=== PATIENT | male | born 1970 ===

== ENCOUNTER 2022-06-25 12:30 | Inpatient (IN) ==
[~2022-06-25 12:30] MED LIST: ACETAMINOPHEN 325 MG TABLET PO PRN; HEPARIN/NACL 0.9% 2 UNITS/ML 1,000 UNIT/500 ML BAG IV ONE; HEPARIN/NACL 0.9% 2 UNITS/ML 2,000 UNIT/1,000 ML BAG IV ONE; LACTULOSE 20 GM/30 ML UDCUP PO PRN; MAGNESIUM SULF RIDER 2 GM/50 ML PREMIX IV PRN; MAGNESIUM SULF RIDER 4 GM/100 ML PREMIX IV PRN; ONDANSETRON 4 MG/2 ML VIAL IV PRN; diphenhydrAMINE CAP 25 MG CAPSULE PO PRN
[2022-06-25] MEDS ORDERED: fentaNYL 100 MCG/2 ML VIAL ONE (12:32)
[2022-06-25] MEDS ORDERED: HEPARIN 5,000 UNIT/1 ML VIAL ONE (12:32)
[2022-06-25] MEDS ORDERED: MIDAZOLAM 2 MG/2 ML VIAL ONE (12:32)
[2022-06-25] MEDS ORDERED: TICAGRELOR 90 MG TABLET ONE (12:36)
[2022-06-25] MEDS ORDERED: DEXTROSE 10% 250 ML BAG IV PRN (12:41)
[2022-06-25] MEDS ORDERED: GLUCAGON 1 MG VIAL IM PRN (12:41)
[2022-06-25] MEDS ORDERED: NITROGLYCERIN DRIP 50 MG/250 ML BOTTLE IV ONE (12:45)
[2022-06-25] MEDS: SODIUM CHLORIDE 0.9% 1,000 ML IV SCH ×2 (13:45→21:03)
[2022-06-25 13:56] LABS: Basophils % 0.2 % (0.0-0.8); Eosinophils # 0.1 10*3/uL (0.0-0.87); Eosinophils % 0.6 % (0.00-10.9); Hematocrit 47.4 VOL% (42.0-52.0); Hemoglobin 16.4 GM/DL (14.0-18.0); Immature Granulocytes % 0.7 %; Immature Granulocytes Absolute 0.09 #; Lymphocytes # 1.2 10*3/uL (1.4-4.0); Lymphocytes % 9.2 % (21.2-54.2); Mean Corpuscular HGB Conc 34.6 GM/DL (32-36); Mean Corpuscular Volume 89.3 FL (87-102); Mean Platelet Volume 11.3 FL (9.6-12.0); Monocytes # 0.9 10*3/uL (0.11-0.8); Monocytes % 6.7 % (1.7-12.7); Neutrophils % 82.6 % (38.7-73.9); Platelet Count 203 T/CUMM (130-400); Red Blood Count 5.31 MC/CUMM (3.8-5.5); Red Cell Distribution Width 12.8 % (9.3-17.3); White Blood Count 13.2 T/CUMM (4-12)
[2022-06-25 14:19] LABS: Albumin 3.2 G/DL (3.4-5.0); Bilirubin,Total 0.7 MG/DL (0.20-1.00); Calcium 7.8 MG/DL (8.5-10.1); Osmolality,Calculated 281.7 MOS/KG (273-304); Potassium 4.5 MMOL/L (3.5-5.1); Risk Ratio 7.24; Thyroid Stimulating Hormone 1.25 uIU/ml (0.358-3.74); Total Protein 6.5 G/DL (6.4-8.2); VLDL Cholesterol 24.4 MG/DL
[2022-06-25] MEDS ORDERED: NITROGLYCERIN SL 0.4 MG TABLET SL PRN (15:44)
[2022-06-25 17:26] LABS: Barbiturates Screen,Urine Negative (Negative); Benzodiazepines Screen,Urine Negative (Negative); Cannabinoid Screen,Urine Negative (Negative); Opiate Screen,Urine Positive (Negative); Phencyclidine Screen,Urine Negative (Negative)
[2022-06-25] MEDS: INSULIN REGULAR 100 UNIT/ML SUBCUT SCH ×2 (17:56→21:03)
[2022-06-25] MEDS: ZALEPLON 5 MG CAPSULE PO PRN (22:40)
[2022-06-26] MEDS: ZALEPLON 5 MG CAPSULE PO PRN (01:23)
[2022-06-26 05:32] LABS: Basophils % 0.2 % (0.0-0.8); Eosinophils # 0.1 10*3/uL (0.0-0.87); Eosinophils % 1.1 % (0.00-10.9); Hematocrit 44.7 VOL% (42.0-52.0); Hemoglobin 15.2 GM/DL (14.0-18.0); Immature Granulocytes % 0.6 %; Immature Granulocytes Absolute 0.06 #; Lymphocytes % 20.8 % (21.2-54.2); Mean Corpuscular Volume 90.7 FL (87-102); Monocytes # 0.9 10*3/uL (0.11-0.8); Monocytes % 9.4 % (1.7-12.7); Neutrophils % 67.9 % (38.7-73.9); Platelet Count 184 T/CUMM (130-400); Red Blood Count 4.93 MC/CUMM (3.8-5.5); White Blood Count 9.7 T/CUMM (4-12)
[2022-06-26 05:59] LABS: Albumin 2.9 G/DL (3.4-5.0); Bilirubin,Total 0.6 MG/DL (0.20-1.00); Osmolality,Calculated 279.4 MOS/KG (273-304); Potassium 3.7 MMOL/L (3.5-5.1); Total Protein 6.1 G/DL (6.4-8.2)
[2022-06-26] MEDS: SODIUM CHLORIDE 0.9% 1,000 ML IV SCH (06:03)
[2022-06-26] MEDS: POTASSIUM CHLORIDE 20 MEQ TABLET PO PRN (06:16)
[2022-06-26] MEDS: INSULIN REGULAR 100 UNIT/ML SUBCUT SCH ×4 (08:06→21:28)
[2022-06-26] MEDS: ATORVASTATIN 40 MG TABLET PO SCH (08:22)
[2022-06-26] MEDS: TICAGRELOR 90 MG TABLET PO SCH ×2 (08:22→21:00)
[2022-06-26] MEDS: PANTOPRAZOLE 40 MG TABLET PO SCH (08:22)
[2022-06-26] MEDS: ASPIRIN EC 81 MG TABLET PO SCH (08:23)
[2022-06-26] MEDS ORDERED: MAGNESIUM SULF RIDER 2 GM/50 ML PREMIX IV ONE (09:36)
[2022-06-26] MEDS ORDERED: POTASSIUM CHLORIDE 20 MEQ TABLET PO ONE (09:37)
[2022-06-26] MEDS: carvediloL 3.125 MG TABLET PO SCH (21:00)
[2022-06-27 04:36] LABS: Basophils % 0.4 % (0.0-0.8); Eosinophils # 0.1 10*3/uL (0.0-0.87); Eosinophils % 1.2 % (0.00-10.9); Hematocrit 46.6 VOL% (42.0-52.0); Hemoglobin 16.5 GM/DL (14.0-18.0); Immature Granulocytes % 1.1 %; Lymphocytes # 1.9 10*3/uL (1.4-4.0); Lymphocytes % 19.8 % (21.2-54.2); Mean Corpuscular HGB Conc 35.4 GM/DL (32-36); Mean Corpuscular Volume 87.6 FL (87-102); Monocytes # 1.1 10*3/uL (0.11-0.8); Monocytes % 11.1 % (1.7-12.7); Neutrophils % 66.4 % (38.7-73.9); Platelet Count 200 T/CUMM (130-400); Red Blood Count 5.32 MC/CUMM (3.8-5.5); Red Cell Distribution Width 12.8 % (9.3-17.3); White Blood Count 9.5 T/CUMM (4-12)
[2022-06-27 05:01] LABS: Calcium 8.3 MG/DL (8.5-10.1); Osmolality,Calculated 277.5 MOS/KG (273-304); Potassium 3.3 MMOL/L (3.5-5.1)
[2022-06-27] MEDS: POTASSIUM CHLORIDE 20 MEQ TABLET PO PRN ×3 (05:12→09:08)
[2022-06-27] MEDS: ASPIRIN EC 81 MG TABLET PO SCH (08:47)
[2022-06-27] MEDS: TICAGRELOR 90 MG TABLET PO SCH ×2 (08:47→20:27)
[2022-06-27] MEDS: INSULIN REGULAR 100 UNIT/ML SUBCUT SCH ×4 (08:47→20:27)
[2022-06-27] MEDS: metFORMIN 500 MG TABLET PO SCH ×2 (08:47→16:28)
[2022-06-27] MEDS: ATORVASTATIN 40 MG TABLET PO SCH (08:47)
[2022-06-27] MEDS: carvediloL 3.125 MG TABLET PO SCH (08:47)
[2022-06-27] MEDS: PANTOPRAZOLE 40 MG TABLET PO SCH (08:48)
[2022-06-27] MEDS: carvediloL 6.25 MG TABLET PO SCH (20:27)
[2022-06-28 05:43] LABS: Basophils % 0.5 % (0.0-0.8); Eosinophils # 0.2 10*3/uL (0.0-0.87); Eosinophils % 2.4 % (0.00-10.9); Hematocrit 47.1 VOL% (42.0-52.0); Hemoglobin 16.3 GM/DL (14.0-18.0); Immature Granulocytes % 1.1 %; Immature Granulocytes Absolute 0.09 #; Mean Corpuscular HGB Conc 34.6 GM/DL (32-36); Mean Corpuscular Volume 88.7 FL (87-102); Mean Platelet Volume 10.7 FL (9.6-12.0); Monocytes # 0.9 10*3/uL (0.11-0.8); Monocytes % 10.6 % (1.7-12.7); Neutrophils % 61.4 % (38.7-73.9); Platelet Count 197 T/CUMM (130-400); Red Blood Count 5.31 MC/CUMM (3.8-5.5); Red Cell Distribution Width 12.8 % (9.3-17.3); White Blood Count 8.4 T/CUMM (4-12)
[2022-06-28 05:55] LABS: Calcium 8.8 MG/DL (8.5-10.1); Osmolality,Calculated 275.8 MOS/KG (273-304); Potassium 3.5 MMOL/L (3.5-5.1)
[2022-06-28] MEDS: metFORMIN 500 MG TABLET PO SCH (08:05)
[2022-06-28] MEDS: INSULIN REGULAR 100 UNIT/ML SUBCUT SCH (08:05)
[2022-06-28] MEDS: PANTOPRAZOLE 40 MG TABLET PO SCH (08:33)
[2022-06-28] MEDS: TICAGRELOR 90 MG TABLET PO SCH (08:33)
[2022-06-28] MEDS: carvediloL 6.25 MG TABLET PO SCH (08:33)
[2022-06-28] MEDS: ASPIRIN EC 81 MG TABLET PO SCH (08:33)
[2022-06-28] MEDS: ATORVASTATIN 40 MG TABLET PO SCH (08:33)
[2022-06-28 12:11] VITALS: BP 130/91
== END 2022-06-28 13:00 | disposition home or self-care (01) | DRG 247 ==
LOC: N.CC 13:21
PROVIDERS: ADMIT Internal Medicine Cardiovascular Disease; ATTEND Internal Medicine Cardiovascular Disease
PROC: CLCCHCL (ICD-10-PCS; 2022-06-25 12:45)